=== PATIENT | female | born 1970 | race Two or more races ===

== ENCOUNTER 2019-01-12 12:07 | Outpatient (CLI) | payer OTHER | END 2019-01-12 16:16 | disposition home or self-care (01) | LOC: SONOGRAMA 12:07 | DX: N83.01 Follicular cyst of right ovary (principal); N80.8 Other endometriosis; D25.9 Leiomyoma of uterus, unspecified ==

== ENCOUNTER 2019-01-12 15:10 | Outpatient (CLI) | payer OTHER | END 2019-01-12 15:36 | disposition home or self-care (01) | LOC: NUCLEAR 15:10 | DX: M81.0 Age-related osteoporosis without current pathological fracture (principal); Z13.820 Encounter for screening for osteoporosis ==